=== PATIENT | female | born 1990 | race Caucasian/White ===

== ENCOUNTER 2020-10-07 22:16 | Emergency (ER) | payer SELFPAY ==
--- NOTE | 2020-10-07 22:26 | PHYS DOC ---
Adult General HPI HPI Patient was a 30-year-old female that was brought in after taking too much heroin, with friends, EMS and EMS given Narcan in route. Per EMS she responded well to the Narcan and was soon awake alert and oriented. Patient stated that she did not want to go to the emergency department but EMS stated that they talked her into it. Soon after arrival to the emergency department patient stated that she felt fine and was ready to be discharged home. She refused vital signs, observation and/or treatment per EMS and nursing staff. Review of Systems Review of Systems Left without being seen Physical Exam Physical Exam Left without being seen however patient was alert and oriented x3, able to articulate her wishes to EMS and nursing staff and walked out of the ED on her own accord EKG EKG [] Radiology/Procedures Radiology/Procedures [] Heart Score C/O Chest Pain: N/A Risk Factors: Risk Factors: DM, Current or recent (<one month) smoker, HTN, HLP, family history of CAD, obesity. Risk Scores: Risk Factors: DM, Current or recent (<one month) smoker, HTN, HLP, family history of CAD, obesity. Course & Med Decision Making Course & Med Decision Making Did not see patient. Patient walked out of the emergency department on her own accord, stating that she was fine, did not want any treatment, did not want us to call her Because she did not have any money anyway and was going away. Both EMS and nursing staff tried to discuss with patient the need to stay but patient got up and walked out. [] Dragon Disclaimer Dragon Disclaimer This electronic medical record was generated, in whole or in part, using a voice recognition dictation system. Departure Departure: Impression: Primary Impression: Heroin overdose Disposition: 07 AMA/ELOPED/LWBS Condition: LEFT WITHOUT BEING SEEN KAI JEFFERSON MD Oct 07, 2020 22:26
== END 2020-10-07 22:23 | disposition left against medical advice (07) ==
LOC: ER 22:16
DX: T40.1X1A Poisoning by heroin, accidental (unintentional), initial encounter (principal); Y92.89 Other specified places as the place of occurrence of the external cause